=== PATIENT | female | born 1950 | race Caucasian/White ===

== ENCOUNTER 2018-06-25 11:32 | Day surgery (SDC) | payer MEDICARE, BC ==
[~2018-06-25] VITALS: Ht 162.6 cm; Wt 86.4 kg
[2018-06-25 11:56] LABS: HEMATOCRIT 42.8 % (36.0-48.0); HEMOGLOBIN 14.6 g/dL (12-16); MCH 32.3 pg (26.0-34.0); MCHC 34.1 g/dL (31.0-37.0); MCV 94.7 fL (80.0-100.0); MEAN PLATELET VOLUME 10.6 fL (7.4-10.4); RBC 4.52 10x6/uL (4.00-5.40); RDW 13.1 % (11.5-14.5)
[2018-06-25] MEDS ORDERED: BENADRYL25 MG PO ×2 (13:16→13:17)
[2018-06-25] MEDS ORDERED: ZOLOFT25 MG PO (13:16)
[2018-06-25] MEDS ORDERED: SINGULAIR10 MG PO (13:16)
[2018-06-25] MEDS ORDERED: SYMBICORT 16010.2 GM INH (13:17)
[2018-06-25] MEDS ORDERED: ALBUTEROL SULF8.5 GM INH (13:18)
[2018-06-25 13:41] VITALS: BP 127/84; Ht 162.6 cm; Wt 86.4 kg
--- NOTE | 2018-06-25 16:00 | NUR ---
PATIENT AMBULATING AROUND ROOM WITHOUT DIZZINESS. RIGHT HAND PIV DC'D WITH TIP INTACT. DISCHARGE INSTRUCTIONS REVIEWED WITH PATIENT AND SPOUSE. DISCHARGED HOME VIA WHEELCHAIR TO PRIVATE VEHICLE WITH SPOUSE
--- NOTE | 2018-06-25 19:03 | OP ---
PATIENT NAME: CARRIE FINLEY MEDICAL RECORD: [id number] :54 LOCATION:[facility] ADMISSION DATE: SURGEON: AIMEE BAIG MD DATE OF OPERATION: 06/25/2018 PROCEDURE: Colonoscopy with polypectomy. REFERRING PHYSICIAN: Cathryn Cervantes MD INDICATIONS: Ms. Finley is a delightful 67-year-old woman with a history of colon polyps and mild diverticulosis. Last colonoscopy was 09/14/2012 with findings showing mild sigmoid diverticulosis coli, several rectal polyps (hyperplastic) and grade III internal hemorrhoids. She presents for outpatient surveillance colonoscopy. PREMEDICATIONS: Total IV anesthesia, propofol 250 mg. INSTRUMENT: Olympus video colonoscope, pediatric. PROCEDURE AND FINDINGS: After receiving informed consent, Ms. Finley was placed in left lateral decubitus position, sedated as per anesthesia. After achieving adequate level of sedation, digital rectal exam was performed that showed no external hemorrhoidal tags, fissures or fistulas. Normal sphincter tone. No palpable rectal masses. Colonoscope was introduced per rectally and advanced to the cecum without difficulty. The cecum, IC valve, and appendiceal orifice were identified and appeared normal. As the colonoscope was withdrawn, careful inspection was made of the walsh of the colon. Overall mucosa had normal vascular and fold pattern. In the descending colon was a diminutive 0.25 cm sessile polyp removed with hot biopsy forcep technique and in the rectum was a 0.25 cm sessile polyp removed with hot biopsy forcep technique. There were [id number] number of diverticula seen in the sigmoid colon and a few scattered in the descending colon. A good prep was present. Withdrawal time was 7 minutes. Ms. Finley tolerated the procedure well, no immediate complications. ASSESSMENT: 1. [id number] sigmoid and mild descending colonic diverticulosis. 2. Small descending colon polyp status post polypectomy. 3. Small rectal polyp, status post polypectomy. 4. Mild internal hemorrhoids. RECOMMENDATIONS: 1. Follow up histopathology. 2. Avoid aspirin, nonsteroidal anti-inflammatory drugs and CONDE-2 inhibitors for 14 days post polypectomy. 3. High fiber diet. 4. Surveillance colonoscopy in 5 years (pending nature of polyp histopathology). TRANSINT:[id number] Voice Confirmation ID: [id number] DOCUMENT ID: [id number] OPERATIVE REPORT [id number] FINLEY,AIMEE KUNZ MD at 1903 CC: CATHRYN CERVANTES [id number] DICTATION DATE: 06/25/18 1433 MANAGER PORTABLE: 06/25/18 1553 [facility] [address] [place] [address]
== END 2018-06-25 16:00 | disposition home or self-care (01) ==
LOC: D.OPS 11:32
PROVIDERS: Anesthesiology; ATTEND Internal Medicine Gastroenterology
DX: Z12.11 Encounter for screening for malignant neoplasm of colon (principal); K57.30 Diverticulosis of large intestine without perforation or abscess without bleeding; K63.5 Polyp of colon; K62.1 Rectal polyp; K64.8 Other hemorrhoids; Z86.010 Personal history of colon polyps; Z01.812 Encounter for preprocedural laboratory examination